=== PATIENT | female | born 1970 | race Caucasian/White ===

== ENCOUNTER 2016-06-15 20:15 | Emergency (ER) | payer OTHER ==
[~2016-06-15] VITALS: Ht 170.2 cm; Wt 60.5 kg
[2016-06-15] MEDS ORDERED: ARMOUR THYROID15 MG PO (20:25)
[2016-06-15] MEDS ORDERED: GABAPENTIN100 MG PO ×2 (20:26)
[2016-06-15 22:31] VITALS: BP 121/69
== END 2016-06-15 22:32 | disposition home or self-care (01) ==
LOC: EME 20:15 → EXP 20:15
DX: M71.22 Synovial cyst of popliteal space [Baker], left knee (principal); S86.912A Strain of unspecified muscle(s) and tendon(s) at lower leg level, left leg, initial encounter; X58.XXXA Exposure to other specified factors, initial encounter
CPT/HCPCS: 73564; 93971; 99281; 99284